=== PATIENT | female | born 1965 | race Hispanic/Latino ===

== ENCOUNTER 2017-03-19 22:21 | Inpatient (IN) | payer OTHER ==
[~2017-03-19] VITALS: Ht 149.9 cm; Wt 56.4 kg
[~2017-03-19 22:21] MED LIST: KEFLEX500 MG PO; VICODIN 5-3001 EACH PO
[2017-03-20] VITALS (18 sets, daily range): BP systolic 128–167; BP diastolic 62–100
[2017-03-20 00:40] LABS: APPEARANCE CLOUDY ((CLEAR)); BILIRUBIN NEGATIVE; BLOOD MODERATE; COLOR YELLOW ((YELLOW)); GLUCOSE (STRIP) >=500; KETONES 80; LEUKOCYTES TRACE; NITRITE NEGATIVE; PROTEIN (STRIP) 30; UROBILINOGEN 0.2 MG/DL (0.2-1.0)
[2017-03-20 00:53] LABS: BACTERIA 3+ /HPF; EPITHELIAL CELLS 1+ /HPF; HYALINE CASTS 0-5 /LPF; MUCUS 1+ /LPF; UCUL ADDED? YES; WHITE BLOOD CELLS 0-5 /HPF (0-5)
[2017-03-20 00:58] LABS: PLATELET COUNT 808 K/uL (156-360)
[2017-03-20 01:12] LABS: CHLORIDE 103 mEq/L (99-109); POTASSIUM 4.7 mEq/L (3.7-5.4); SODIUM 131 mEq/L (136-147)
[2017-03-20 01:18] LABS: CREATININE 1.2 mg/dL (0.6-1.3); GFR ESTIMATE (CALCULATED) 50 mL/min/
[2017-03-20 01:19] LABS: HEMATOCRIT 36.3 % (36.0-46.0); HEMOGLOBIN 11.1 G/DL (11.9-15.5); MCH 26.9 PG (29.0-34.0); MCHC 30.6 G/DL (30.0-36.0); MCV 87.9 FL (83-99); RBC DIS.WIDTH-CV 16.5 % (11.8-14.6); RBC DIS.WIDTH-SD 53.2 % (39-53); RED BLOOD COUNT 4.13 M/uL (3.80-5.20); UREA NITROGEN (BUN) 30 mg/dL (9-23)
[2017-03-20 01:20] LABS: CREATINE KINASE 36 IU/L (1-294); TOTAL CK 36 IU/L (1-294)
[2017-03-20 01:26] LABS: WHITE BLOOD COUNT 35.6 K/uL (4.1-10.2)
[2017-03-20 01:27] LABS: CK-MB 1.1 ng/mL (0.0-4.9); CKMB RELATIVE INDEX 3.1 (0.0-3.9)
[2017-03-20 01:29] LABS: GLUCOSE 715 mg/dL (70-99)
[2017-03-20 01:30] LABS: CARBON DIOXIDE (BICARBONATE) < 10.0 mEq/L (20-31)
[2017-03-20 01:59] LABS: MAGNESIUM 2.1 mg/dL (1.3-2.7)
[2017-03-20 02:04] LABS: PHOSPHORUS 4.3 mg/dL (2.5-4.9)
[2017-03-20 02:09] LABS: CARBOXY HGB 1.5 % (0-5); COMMENTS - BLOOD GASES A+C+; FI02 21 %; METHEMOGLOBIN 2.1 % (0-1.5); PCO2 < 19 mm Hg (35-45); PO2 89 mm Hg (80-100); SITE RR; TOTAL RESP RATE 20 resp/min; pH 7.14 (7.35-7.45)
[2017-03-20 03:29] LABS: INTER. NORMALIZED RATIO 1.2
[2017-03-20 03:31] LABS: PTT 27.3 SEC (25-37)
[2017-03-20] MEDS ORDERED: GLUCOPHAGE1000 MG PO (04:27)
[2017-03-20] MEDS ORDERED: DIABETA5 MG PO (04:28)
[2017-03-20] MEDS ORDERED: LISINOPRIL10 MG PO (04:29)
[2017-03-20 04:47] LABS: CHLORIDE 110 mEq/L (99-109); SODIUM 137 mEq/L (136-147)
[2017-03-20 04:53] LABS: CREATININE 0.9 mg/dL (0.6-1.3); GFR ESTIMATE (CALCULATED) > 59 mL/min/
[2017-03-20 04:54] LABS: UREA NITROGEN (BUN) 25 mg/dL (9-23)
[2017-03-20 04:55] LABS: CARBON DIOXIDE (BICARBONATE) < 10.0 mEq/L (20-31); GLUCOSE 433 mg/dL (70-99); PHOSPHORUS 2.5 mg/dL (2.5-4.9)
[2017-03-20 05:36] LABS: BASE EXCESS -17.7 mEq/L (-3 to +3); BICARBONATE 8.4 mEq/L (22-26); CARBOXY HGB 1.6 % (0-5); METHEMOGLOBIN 2.1 % (0-1.5); PCO2 21 mm Hg (35-45)
[2017-03-20 05:38] LABS: COMMENTS - BLOOD GASES C+; PO2 107 mm Hg (80-100); SITE RB; TOTAL RESP RATE 16 resp/min; pH 7.21 (7.35-7.45)
[2017-03-20 06:24] LABS: HEMATOCRIT 34.6 % (36.0-46.0); HEMOGLOBIN 10.4 G/DL (11.9-15.5); MCH 26.4 PG (29.0-34.0); MCHC 30.1 G/DL (30.0-36.0); MCV 87.8 FL (83-99); PLATELET COUNT 685 K/uL (156-360); RBC DIS.WIDTH-SD 51.8 % (39-53); RED BLOOD COUNT 3.94 M/uL (3.80-5.20)
[2017-03-20 06:38] LABS: CHLORIDE 110 MEQ/L (99-109); CREATININE 0.7 MG/DL (0.6-1.3); GFR ESTIMATE (CALCULATED) > 59 mL/min/; GLUCOSE 337 mg/dL (70-99); POTASSIUM 4.2 MEQ/L (3.7-5.4); SODIUM 138 MEQ/L (136-147); UREA NITROGEN (BUN) 24 mg/dL (9-23)
[2017-03-20 06:45] LABS: WHITE BLOOD COUNT 33.9 K/uL (4.1-10.2)
[2017-03-20 06:50] LABS: ALBUMIN 2.2 G/DL (3.2-4.8); ALKALINE PHOSPHATASE 240 IU/L (3-129); ALT (GPT) 18 IU/L (3-49); AST (GOT) 23 IU/L (2-34); DIRECT BILIRUBIN 0.2 mg/dL (0.0-0.3); TOTAL BILIRUBIN 0.4 MG/DL (0.0-1.0); TOTAL PROTEIN 6.1 G/DL (6.4-8.3)
[2017-03-20 06:54] LABS: CARBON DIOXIDE (BICARBONATE) < 10.0 MEQ/L (20-31)
[2017-03-20 06:55] LABS: Estimated Average Glucose 341 mg/dL (70-123); HEMOGLOBIN A1c (GLYCOHEMOGLOB) 13.5 % HGB (Below 5.7)
[2017-03-20 07:23] LABS: ABS NEUTROPHIL COUNT 31.2; ANISOCYTOSIS 2+; ATYPICAL LYMPHOCYTE 0.9 %; BAND NEUTROPHILS 0.4 % (0-8.0); BURR CELLS 1+; EOSINOPHIL ABS CT 0; LYMPHOCYTES 3.5 % (15.0-45.0); MACROCYTES 1+; MONOCYTES 3.1 % (0-9.0); MYELOCYTES 0.4 %; NUCLEATED RBC'S 0.9; PLAT.SUFFICIENCY INCREASED; POIKILOCYTOSIS 1+; SEG.NEUTROPHILS 91.7 % (46.0-76.0); SMUDGE CELLS 1.7
[2017-03-20 08:24] LABS: CHLORIDE 113 MEQ/L (99-109); CREATININE 0.6 MG/DL (0.6-1.3); GFR ESTIMATE (CALCULATED) > 59 mL/min/; GLUCOSE 255 mg/dL (70-99); PHOSPHORUS 1.9 mg/dL (2.5-4.9); POTASSIUM 3.6 MEQ/L (3.7-5.4); SODIUM 140 MEQ/L (136-147); UREA NITROGEN (BUN) 23 mg/dL (9-23)
[2017-03-20 12:36] LABS: CHLORIDE 113 MEQ/L (99-109); POTASSIUM 3.2 MEQ/L (3.7-5.4); SODIUM 138 MEQ/L (136-147)
[2017-03-20 12:42] LABS: CREATININE 0.5 MG/DL (0.6-1.3); GFR ESTIMATE (CALCULATED) > 59 mL/min/; GLUCOSE 193 mg/dL (70-99); PHOSPHORUS 1.7 mg/dL (2.5-4.9); UREA NITROGEN (BUN) 20 mg/dL (9-23)
[2017-03-20 16:26] LABS: CHLORIDE 114 MEQ/L (99-109); POTASSIUM 3.2 MEQ/L (3.7-5.4); SODIUM 138 MEQ/L (136-147)
[2017-03-20 16:31] LABS: CREATININE 0.5 MG/DL (0.6-1.3); GFR ESTIMATE (CALCULATED) > 59 mL/min/; GLUCOSE 174 mg/dL (70-99); PHOSPHORUS 1.4 mg/dL (2.5-4.9); UREA NITROGEN (BUN) 18 mg/dL (9-23)
[2017-03-20 20:38] LABS: CHLORIDE 114 MEQ/L (99-109); POTASSIUM 3.5 MEQ/L (3.7-5.4); SODIUM 139 MEQ/L (136-147)
[2017-03-20 20:43] LABS: CREATININE 0.4 MG/DL (0.6-1.3); GFR ESTIMATE (CALCULATED) > 59 mL/min/; GLUCOSE 141 mg/dL (70-99); PHOSPHORUS 1.3 mg/dL (2.5-4.9); UREA NITROGEN (BUN) 16 mg/dL (9-23)
[2017-03-21] VITALS (11 sets, daily range): BP systolic 123–152; BP diastolic 63–77
[2017-03-21 05:27] LABS: BASOPHIL (%) 0.3 % (0-1); BASOPHIL COUNT 0.1 K/uL (0-0.1); EOSINOPHIL (%) 0.8 % (0-5); EOSINOPHIL COUNT 0.2 K/uL (0-0.3); HEMATOCRIT 28.7 % (36.0-46.0); HEMOGLOBIN 9.4 G/DL (11.9-15.5); IMMATURE GRANULOCYTE (%) 4.1 % (0.0-0.7); LYMPHOCYTE (%) 4.1 % (15-42); LYMPHOCYTE COUNT 0.9 K/uL (1.0-2.8); MCH 26.9 PG (29.0-34.0); MCHC 32.8 G/DL (30.0-36.0); MONOCYTE (%) 3.5 % (3-12); MONOCYTE COUNT 0.8 K/uL (0-0.8); NEUTROPHIL (%) 87.2 % (45-76); NEUTROPHIL COUNT 20.2 K/uL (1.8-6.4); PLATELET COUNT 646 K/uL (156-360); RBC DIS.WIDTH-CV 15.9 % (11.8-14.6); RBC DIS.WIDTH-SD 46.8 % (39-53); WHITE BLOOD COUNT 23.1 K/uL (4.1-10.2)
[2017-03-21 05:43] LABS: CHLORIDE 112 MEQ/L (99-109); CREATININE 0.5 MG/DL (0.6-1.3); GFR ESTIMATE (CALCULATED) > 59 mL/min/; POTASSIUM 3.3 MEQ/L (3.7-5.4); SODIUM 137 MEQ/L (136-147); UREA NITROGEN (BUN) 14 mg/dL (9-23)
[2017-03-21 05:46] LABS: GLUCOSE 231 mg/dL (70-99); PHOSPHORUS 1.8 mg/dL (2.5-4.9)
[2017-03-22] VITALS (7 sets, daily range): BP systolic 109–137; BP diastolic 57–107
[2017-03-22 05:42] LABS: HEMATOCRIT 30.9 % (36.0-46.0); HEMOGLOBIN 10.2 G/DL (11.9-15.5); MCH 26.8 PG (29.0-34.0); MCV 81.3 FL (83-99); PLATELET COUNT 682 K/uL (156-360); RBC DIS.WIDTH-CV 15.9 % (11.8-14.6); RBC DIS.WIDTH-SD 46.5 % (39-53); WHITE BLOOD COUNT 22.3 K/uL (4.1-10.2)
[2017-03-22 06:05] LABS: CHLORIDE 108 MEQ/L (99-109); CREATININE 0.3 MG/DL (0.6-1.3); GFR ESTIMATE (CALCULATED) > 59 mL/min/; GLUCOSE 56 mg/dL (70-99); MAGNESIUM 1.7 mg/dl (1.3-2.7); PHOSPHORUS 2.9 mg/dL (2.5-4.9); POTASSIUM 3.4 MEQ/L (3.7-5.4); SODIUM 137 MEQ/L (136-147); UREA NITROGEN (BUN) 8 mg/dL (9-23)
[2017-03-22 07:01] LABS: ABS NEUTROPHIL COUNT 19.5; ANISOCYTOSIS 2+; BAND NEUTROPHILS 18.5 % (0-8.0); EOSINOPHIL ABS CT 0; LYMPHOCYTES 10.5 % (15.0-45.0); MACROCYTES 1+; NUCLEATED RBC'S 0.5; PLAT.SUFFICIENCY INCREASED
[2017-03-23 05:48] LABS: BASOPHIL (%) 0.3 % (0-1); BASOPHIL COUNT 0.1 K/uL (0-0.1); EOSINOPHIL (%) 0.1 % (0-5); HEMATOCRIT 26.6 % (36.0-46.0); HEMOGLOBIN 8.9 G/DL (11.9-15.5); IMMATURE GRANULOCYTE (%) 4.9 % (0.0-0.7); LYMPHOCYTE (%) 6.6 % (15-42); LYMPHOCYTE COUNT 1.6 K/uL (1.0-2.8); MCH 27.1 PG (29.0-34.0); MCHC 33.5 G/DL (30.0-36.0); MCV 80.9 FL (83-99); MONOCYTE (%) 5.6 % (3-12); MONOCYTE COUNT 1.3 K/uL (0-0.8); NEUTROPHIL (%) 82.5 % (45-76); NEUTROPHIL COUNT 19.4 K/uL (1.8-6.4); PLATELET COUNT 627 K/uL (156-360); RBC DIS.WIDTH-CV 15.4 % (11.8-14.6); RBC DIS.WIDTH-SD 44.6 % (39-53); RED BLOOD COUNT 3.29 M/uL (3.80-5.20); WHITE BLOOD COUNT 23.5 K/uL (4.1-10.2)
[2017-03-23 06:13] LABS: ALBUMIN 1.8 G/DL (3.2-4.8); AST (GOT) 29 IU/L (2-34); CHLORIDE 103 MEQ/L (99-109); CREATININE 0.3 MG/DL (0.6-1.3); GFR ESTIMATE (CALCULATED) > 59 mL/min/; GLUCOSE 65 mg/dL (70-99); PHOSPHORUS 3.2 mg/dL (2.5-4.9); POTASSIUM 3.5 MEQ/L (3.7-5.4); SODIUM 134 MEQ/L (136-147); UREA NITROGEN (BUN) 4 mg/dL (9-23)
[2017-03-23 06:14] LABS: ALKALINE PHOSPHATASE 427 IU/L (3-129); ALT (GPT) 40 IU/L (3-49); TOTAL BILIRUBIN 0.6 MG/DL (0.0-1.0); TOTAL PROTEIN 4.9 G/DL (6.4-8.3)
[2017-03-23 07:20] VITALS: BP 128/82
[2017-03-23] MEDS ORDERED: JANUVIA100 MG PO (13:09)
[2017-03-23] MEDS ORDERED: ZOCOR10 MG PO (13:12)
[2017-03-23] MEDS ORDERED: LEVEMIR100 UNIT/2 SC (13:16)
[2017-03-23 14:58] VITALS: BP 126/60
[2017-03-24 01:21] VITALS: BP 142/69
[2017-03-24 06:22] LABS: HEMATOCRIT 28.4 % (36.0-46.0); HEMOGLOBIN 9.4 G/DL (11.9-15.5); MCHC 33.1 G/DL (30.0-36.0); MCV 81.6 FL (83-99); RBC DIS.WIDTH-CV 15.3 % (11.8-14.6); RBC DIS.WIDTH-SD 43.8 % (39-53); RED BLOOD COUNT 3.48 M/uL (3.80-5.20); WHITE BLOOD COUNT 21.1 K/uL (4.1-10.2)
[2017-03-24 07:28] LABS: ABS NEUTROPHIL COUNT 15.6; EOSINOPHIL ABS CT 0.1; EOSINOPHILS 0.5 % (0-5.0); HEMATOLOGY COMMENT 1 SMEAR COMPATIBLE; MYELOCYTES 3.5 %; PLATELET CLUMPS PRESENT - PLATELET COUNT APPEARS INCREASED
[2017-03-24 07:51] VITALS: BP 106/55
[2017-03-24 12:22] VITALS: BP 109/60
[2017-03-24 20:05] VITALS: BP 132/60
[2017-03-25] VITALS (13 sets, daily range): BP systolic 106–140; BP diastolic 56–72
[2017-03-25 06:43] LABS: BASOPHIL (%) 0.2 % (0-1); EOSINOPHIL (%) 0.5 % (0-5); EOSINOPHIL COUNT 0.1 K/uL (0-0.3); HEMATOCRIT 23.1 % (36.0-46.0); HEMOGLOBIN 7.5 G/DL (11.9-15.5); IMMATURE GRANULOCYTE (%) 4.5 % (0.0-0.7); LYMPHOCYTE (%) 10.3 % (15-42); LYMPHOCYTE COUNT 1.1 K/uL (1.0-2.8); MCH 26.4 PG (29.0-34.0); MCHC 32.5 G/DL (30.0-36.0); MCV 81.3 FL (83-99); MONOCYTE (%) 9.8 % (3-12); MONOCYTE COUNT 1.1 K/uL (0-0.8); NEUTROPHIL (%) 74.7 % (45-76); NEUTROPHIL COUNT 8.2 K/uL (1.8-6.4); PLATELET COUNT 517 K/uL (156-360); RBC DIS.WIDTH-SD 42.6 % (39-53); RED BLOOD COUNT 2.84 M/uL (3.80-5.20)
[2017-03-25 07:10] LABS: CHLORIDE 100 MEQ/L (99-109); CREATININE 0.3 MG/DL (0.6-1.3); GFR ESTIMATE (CALCULATED) > 59 mL/min/; SODIUM 134 MEQ/L (136-147); UREA NITROGEN (BUN) 5 mg/dL (9-23)
[2017-03-25 07:14] LABS: GLUCOSE 193 mg/dL (70-99)
[2017-03-26 06:25] LABS: BASOPHIL (%) 0.6 % (0-1); BASOPHIL COUNT 0.1 K/uL (0-0.1); EOSINOPHIL (%) 0.5 % (0-5); EOSINOPHIL COUNT 0.1 K/uL (0-0.3); HEMATOCRIT 32.4 % (36.0-46.0); LYMPHOCYTE (%) 10.2 % (15-42); LYMPHOCYTE COUNT 1.6 K/uL (1.0-2.8); MCH 27.7 PG (29.0-34.0); MCV 83.9 FL (83-99); MONOCYTE (%) 9.4 % (3-12); MONOCYTE COUNT 1.4 K/uL (0-0.8); NEUTROPHIL (%) 76.3 % (45-76); NEUTROPHIL COUNT 11.6 K/uL (1.8-6.4); PLATELET COUNT 525 K/uL (156-360); RBC DIS.WIDTH-SD 43.8 % (39-53); WHITE BLOOD COUNT 15.2 K/uL (4.1-10.2)
[2017-03-26 06:35] LABS: CHLORIDE 99 MEQ/L (99-109); CREATININE 0.3 MG/DL (0.6-1.3); GFR ESTIMATE (CALCULATED) > 59 mL/min/; GLUCOSE 42 mg/dL (70-99); SODIUM 134 MEQ/L (136-147); UREA NITROGEN (BUN) 5 mg/dL (9-23)
[2017-03-26 06:54] LABS: HEMOGLOBIN 10.7 G/DL (11.9-15.5); RED BLOOD COUNT 3.86 M/uL (3.80-5.20)
[2017-03-26 07:34] VITALS: BP 114/58
[2017-03-26 12:19] VITALS: BP 128/58
[2017-03-26 16:42] VITALS: BP 122/58
[2017-03-27 00:14] VITALS: BP 117/61
[2017-03-27 06:32] LABS: BASOPHIL (%) 0.5 % (0-1); BASOPHIL COUNT 0.1 K/uL (0-0.1); EOSINOPHIL (%) 0.7 % (0-5); EOSINOPHIL COUNT 0.1 K/uL (0-0.3); HEMATOCRIT 34.9 % (36.0-46.0); HEMOGLOBIN 11.3 G/DL (11.9-15.5); IMMATURE GRANULOCYTE (%) 2.1 % (0.0-0.7); LYMPHOCYTE (%) 10.3 % (15-42); LYMPHOCYTE COUNT 1.3 K/uL (1.0-2.8); MCHC 32.4 G/DL (30.0-36.0); MCV 83.5 FL (83-99); MONOCYTE (%) 8.1 % (3-12); MONOCYTE COUNT 1.1 K/uL (0-0.8); NEUTROPHIL (%) 78.3 % (45-76); NEUTROPHIL COUNT 10.1 K/uL (1.8-6.4); PLATELET COUNT 545 K/uL (156-360); RBC DIS.WIDTH-CV 14.6 % (11.8-14.6); RBC DIS.WIDTH-SD 43.4 % (39-53); RED BLOOD COUNT 4.18 M/uL (3.80-5.20); WHITE BLOOD COUNT 12.9 K/uL (4.1-10.2)
[2017-03-27 07:34] VITALS: BP 142/69
[2017-03-27 17:54] VITALS: BP 140/66
[2017-03-28 00:38] VITALS: BP 119/64
[2017-03-28 06:38] LABS: BASOPHIL (%) 0.4 % (0-1); EOSINOPHIL (%) 1.1 % (0-5); EOSINOPHIL COUNT 0.1 K/uL (0-0.3); HEMATOCRIT 34.4 % (36.0-46.0); HEMOGLOBIN 11.1 G/DL (11.9-15.5); LYMPHOCYTE (%) 12.9 % (15-42); LYMPHOCYTE COUNT 1.4 K/uL (1.0-2.8); MCH 27.3 PG (29.0-34.0); MCHC 32.3 G/DL (30.0-36.0); MCV 84.7 FL (83-99); MONOCYTE (%) 7.1 % (3-12); MONOCYTE COUNT 0.8 K/uL (0-0.8); NEUTROPHIL (%) 76.5 % (45-76); NEUTROPHIL COUNT 8.4 K/uL (1.8-6.4); PLATELET COUNT 490 K/uL (156-360); RBC DIS.WIDTH-CV 14.4 % (11.8-14.6); RBC DIS.WIDTH-SD 43.7 % (39-53); RED BLOOD COUNT 4.06 M/uL (3.80-5.20)
[2017-03-28 07:16] LABS: CHLORIDE 96 MEQ/L (99-109); CREATININE 0.4 MG/DL (0.6-1.3); GFR ESTIMATE (CALCULATED) > 59 mL/min/; POTASSIUM 4.9 MEQ/L (3.7-5.4); SODIUM 132 MEQ/L (136-147); UREA NITROGEN (BUN) 7 mg/dL (9-23)
[2017-03-28 07:19] LABS: GLUCOSE 181 mg/dL (70-99)
[2017-03-28 08:11] VITALS: BP 111/51
[2017-03-28 15:35] VITALS: BP 121/58
[2017-03-29 00:18] VITALS: BP 109/58
[2017-03-29 08:20] VITALS: BP 107/62
[2017-03-29 09:15] VITALS: BP 112/60
[2017-03-29 16:29] VITALS: BP 126/64
[2017-03-30 00:24] VITALS: BP 119/76
[2017-03-30 06:50] VITALS: BP 116/61
[2017-03-30 07:03] LABS: HEMOGLOBIN 10.2 G/DL (11.9-15.5); MCHC 32.9 G/DL (30.0-36.0); MCV 85.2 FL (83-99); PLATELET COUNT 467 K/uL (156-360); RBC DIS.WIDTH-CV 14.1 % (11.8-14.6); RBC DIS.WIDTH-SD 43.3 % (39-53); RED BLOOD COUNT 3.64 M/uL (3.80-5.20)
[2017-03-30 07:09] LABS: CHLORIDE 97 MEQ/L (99-109); CREATININE 0.3 MG/DL (0.6-1.3); GFR ESTIMATE (CALCULATED) > 59 mL/min/; POTASSIUM 4.3 MEQ/L (3.7-5.4); SODIUM 135 MEQ/L (136-147); UREA NITROGEN (BUN) 7 mg/dL (9-23)
[2017-03-30 07:13] LABS: GLUCOSE 67 mg/dL (70-99)
[2017-03-30] MEDS ORDERED: HYDROCODON-ACE1 EAC7 PO (08:57)
[2017-03-30] MEDS ORDERED: ROCEPHIN 2 GM VI2 GM IV (09:02)
[2017-03-30 10:15] VITALS: BP 132/71
[2017-03-30 10:28] VITALS: BP 116/69
[2017-03-30 11:03] LABS: BASOPHIL (%) 0.4 % (0-1); EOSINOPHIL (%) 1.7 % (0-5); EOSINOPHIL COUNT 0.2 K/uL (0-0.3); HEMATOCRIT 34.1 % (36.0-46.0); HEMOGLOBIN 11.2 G/DL (11.9-15.5); IMMATURE GRANULOCYTE (%) 0.9 % (0.0-0.7); LYMPHOCYTE COUNT 1.3 K/uL (1.0-2.8); MCH 27.9 PG (29.0-34.0); MCHC 32.8 G/DL (30.0-36.0); MONOCYTE (%) 6.3 % (3-12); MONOCYTE COUNT 0.6 K/uL (0-0.8); NEUTROPHIL (%) 77.7 % (45-76); NEUTROPHIL COUNT 7.5 K/uL (1.8-6.4); PLATELET COUNT 428 K/uL (156-360); RBC DIS.WIDTH-CV 14.1 % (11.8-14.6); RBC DIS.WIDTH-SD 42.9 % (39-53); RED BLOOD COUNT 4.01 M/uL (3.80-5.20); WHITE BLOOD COUNT 9.7 K/uL (4.1-10.2)
[2017-03-30 11:25] LABS: TROP-I INTERPRETATION NEGATIVE; TROPONIN-I < 0.01 ng/mL (0.0-0.30)
[2017-03-30 15:20] VITALS: BP 134/68
== END 2017-03-30 18:39 | disposition home health service (06) | DRG 871 ==
LOC: EME 22:21 → 5EAST 03-20 02:30 → EDOF 03-20 02:30 → 4WEST 03-20 02:30 → ENRESERV 03-20 02:34 → 4WEST 03-20 03:57 → ENRESERV 03-22 17:27 → 5EAST 03-22 19:52
PROVIDERS: Emergency Medicine; Family Medicine; Internal Medicine; Internal Medicine Critical Care Medicine; Physician Assistant; Surgery
DX: A41.01 Sepsis due to Methicillin susceptible Staphylococcus aureus (principal); M60.08 Infective myositis, other site; N39.0 Urinary tract infection, site not specified; E11.10 Type 2 diabetes mellitus with ketoacidosis without coma; E87.1 Hypo-osmolality and hyponatremia; E87.3 Alkalosis; T85.618A Breakdown (mechanical) of other specified internal prosthetic devices, implants and grafts, initial encounter; Y84.8 Other medical procedures as the cause of abnormal reaction of the patient, or of later complication, without mention of misadventure at the time of the procedure; R31.9 Hematuria, unspecified; R79.1 Abnormal coagulation profile; I10 Essential (primary) hypertension; D47.3 Essential (hemorrhagic) thrombocythemia; K21.9 Gastro-esophageal reflux disease without esophagitis; D64.9 Anemia, unspecified; E78.5 Hyperlipidemia, unspecified; E78.1 Pure hyperglyceridemia; Z91.14 Patient's other noncompliance with medication regimen; Z91.19 Patient's noncompliance with other medical treatment and regimen
CPT/HCPCS: 10030; 36600; 70450; 71275; 72131; 74177; 75989; 76937; 80048; 80048 91; 80053; 80076; 80202; 81003; 82010; 82140; 82550; 82553; 82803; 82948; 83036; 83605; 83735; 84100; 84484; 85025; 85027; 85379; 85610; 85730; 86850; 86900; 86901; 86920; 87040; 87070; 87075; 87077; 87086; 87147; 87186; 87205; 87641; 87801; 93005; 93306; 93971; 94799; 99281; 99285; C1729; C1769; J0690; J0696; J1170; J1200; J1650; J1815; J1940; J2270; J2543; J3010; J3370; J3475; J7030; J7040; J7042; J7050; P9016; S0028

== ENCOUNTER 2017-04-14 13:54 | Inpatient (IN) | payer OTHER ==
[~2017-04-14] VITALS: Ht 149.9 cm; Wt 54.5 kg
[~2017-04-14 13:54] MED LIST changes: +DIABETA5 MG PO; +GLUCOPHAGE1000 MG PO; +HYDROCODON-ACE1 EAC7 PO; +JANUVIA100 MG PO; +LEVEMIR100 UNIT/2 SC; +LISINOPRIL10 MG PO; +ROCEPHIN 2 GM VI2 GM IV; +ZOCOR10 MG PO
[2017-04-14 14:46] LABS: BASOPHIL (%) 0.8 % (0-1); BASOPHIL COUNT 0.1 K/uL (0-0.1); EOSINOPHIL (%) 1.4 % (0-5); EOSINOPHIL COUNT 0.2 K/uL (0-0.3); HEMATOCRIT 38.6 % (36.0-46.0); HEMOGLOBIN 12.3 G/DL (11.9-15.5); IMMATURE GRANULOCYTE (%) 1.1 % (0.0-0.7); LYMPHOCYTE (%) 14.4 % (15-42); LYMPHOCYTE COUNT 1.7 K/uL (1.0-2.8); MCH 26.7 PG (29.0-34.0); MCHC 31.9 G/DL (30.0-36.0); MCV 83.7 FL (83-99); MONOCYTE (%) 4.8 % (3-12); MONOCYTE COUNT 0.6 K/uL (0-0.8); NEUTROPHIL (%) 77.5 % (45-76); NEUTROPHIL COUNT 9.3 K/uL (1.8-6.4); PLATELET COUNT 610 K/uL (156-360); RBC DIS.WIDTH-CV 14.6 % (11.8-14.6); RBC DIS.WIDTH-SD 44.1 % (39-53); RED BLOOD COUNT 4.61 M/uL (3.80-5.20)
[2017-04-14 14:53] LABS: CHLORIDE 97 mEq/L (99-109); POTASSIUM 4.2 mEq/L (3.7-5.4); SODIUM 136 mEq/L (136-147)
[2017-04-14 14:55] LABS: GLUCOSE 152 mg/dL (70-99)
[2017-04-14 14:58] LABS: CREATININE 0.6 mg/dL (0.6-1.3); GFR ESTIMATE (CALCULATED) > 59 mL/min/
[2017-04-14 14:59] LABS: UREA NITROGEN (BUN) 8 mg/dL (9-23)
[2017-04-14 16:37] LABS: ALBUMIN 3.1 g/dL (3.2-4.8)
[2017-04-14 16:40] LABS: TOTAL PROTEIN 7.3 g/dL (6.4-8.3)
[2017-04-14 16:41] LABS: TOTAL BILIRUBIN 0.3 mg/dL (0.0-1.0)
[2017-04-14 16:42] LABS: ALKALINE PHOSPHATASE 96 IU/L (3-129)
[2017-04-14 16:43] LABS: INTER. NORMALIZED RATIO 1.1
[2017-04-14 16:45] LABS: AST (GOT) 14 IU/L (2-34); DIRECT BILIRUBIN 0.1 mg/dL (0.0-0.3)
[2017-04-14 16:46] LABS: ALT (GPT) 6 IU/L (3-49); LIPASE 10 U/L (1.0-51.0); PTT 30.6 SEC (25-37)
[2017-04-14 17:06] LABS: TROP-I INTERPRETATION NEGATIVE; TROPONIN-I < 0.01 ng/mL (0.0-0.30)
[2017-04-14] MEDS ORDERED: PEPCID AC20 MG PO (19:13)
[2017-04-14] MEDS ORDERED: PEPTO BISMOL240 ML PO (19:14)
[2017-04-15 00:50] VITALS: BP 128/60
[2017-04-15 04:00] VITALS: BP 135/62
[2017-04-15 06:54] LABS: ALBUMIN 2.3 G/DL (3.2-4.8); ALKALINE PHOSPHATASE 107 IU/L (3-129); ALT (GPT) 7 IU/L (3-49); AST (GOT) 14 IU/L (2-34); CHLORIDE 107 MEQ/L (99-109); CREATININE 0.3 MG/DL (0.6-1.3); GFR ESTIMATE (CALCULATED) > 59 mL/min/; POTASSIUM 3.8 MEQ/L (3.7-5.4); SODIUM 137 MEQ/L (136-147); TOTAL BILIRUBIN 0.3 MG/DL (0.0-1.0); UREA NITROGEN (BUN) 6 mg/dL (9-23)
[2017-04-15 06:56] LABS: MCH 26.6 PG (29.0-34.0); PLATELET COUNT 438 K/uL (156-360); RBC DIS.WIDTH-CV 14.6 % (11.8-14.6); RBC DIS.WIDTH-SD 45.1 % (39-53); WHITE BLOOD COUNT 9.7 K/uL (4.1-10.2)
[2017-04-15 07:02] LABS: HEMOGLOBIN 9.3 G/DL (11.9-15.5); RED BLOOD COUNT 3.49 M/uL (3.80-5.20)
[2017-04-15 07:10] LABS: GLUCOSE 92 mg/dL (70-99)
[2017-04-15 07:15] VITALS: BP 118/67
[2017-04-15 09:42] LABS: APPEARANCE CLEAR ((CLEAR)); BILIRUBIN NEGATIVE; BLOOD SMALL; COLOR YELLOW ((YELLOW)); GLUCOSE (STRIP) NEGATIVE; KETONES NEGATIVE; LEUKOCYTES TRACE; NITRITE NEGATIVE; PROTEIN (STRIP) NEGATIVE; SPECIFIC GRAVITY 1.017 (1.000-1.030); UROBILINOGEN 0.2 MG/DL (0.2-1.0)
[2017-04-15 09:44] LABS: BACTERIA NONE SEEN /HPF; EPITHELIAL CELLS RARE /HPF; MUCUS TRACE /LPF; RED BLOOD CELLS 0-5 /HPF (0-5); UCUL ADDED? NO; WHITE BLOOD CELLS 0-5 /HPF (0-5)
[2017-04-15 11:42] VITALS: BP 121/63
[2017-04-15 16:51] VITALS: BP 121/63
[2017-04-15 19:30] VITALS: BP 110/72
[2017-04-16 00:04] VITALS: BP 100/59
[2017-04-16 00:10] VITALS: BP 147/69
[2017-04-16 06:28] LABS: BASOPHIL (%) 0.8 % (0-1); BASOPHIL COUNT 0.1 K/uL (0-0.1); EOSINOPHIL (%) 3.9 % (0-5); EOSINOPHIL COUNT 0.3 K/uL (0-0.3); HEMATOCRIT 28.4 % (36.0-46.0); HEMOGLOBIN 8.9 G/DL (11.9-15.5); IMMATURE GRANULOCYTE (%) 1.2 % (0.0-0.7); LYMPHOCYTE (%) 23.4 % (15-42); LYMPHOCYTE COUNT 1.7 K/uL (1.0-2.8); MCH 26.5 PG (29.0-34.0); MCHC 31.3 G/DL (30.0-36.0); MCV 84.5 FL (83-99); MONOCYTE COUNT 0.7 K/uL (0-0.8); NEUTROPHIL (%) 61.7 % (45-76); NEUTROPHIL COUNT 4.5 K/uL (1.8-6.4); PLATELET COUNT 462 K/uL (156-360); RBC DIS.WIDTH-CV 14.6 % (11.8-14.6); RBC DIS.WIDTH-SD 44.9 % (39-53); RED BLOOD COUNT 3.36 M/uL (3.80-5.20); WHITE BLOOD COUNT 7.4 K/uL (4.1-10.2)
[2017-04-16 06:50] LABS: CHLORIDE 106 MEQ/L (99-109); CREATININE 0.3 MG/DL (0.6-1.3); GFR ESTIMATE (CALCULATED) > 59 mL/min/; GLUCOSE 97 mg/dL (70-99); POTASSIUM 3.6 MEQ/L (3.7-5.4); SODIUM 136 MEQ/L (136-147); UREA NITROGEN (BUN) 3 mg/dL (9-23)
[2017-04-16 07:18] LABS: VANCOMYCIN, TROUGH 7.9 MCG/ML (10-20)
[2017-04-16 08:41] VITALS: BP 151/75
[2017-04-16 11:34] VITALS: BP 147/80
[2017-04-16 16:13] VITALS: BP 127/61
[2017-04-17] VITALS: BP 124/59
[2017-04-17 06:19] LABS: BASOPHIL (%) 0.8 % (0-1); BASOPHIL COUNT 0.1 K/uL (0-0.1); EOSINOPHIL (%) 4.2 % (0-5); EOSINOPHIL COUNT 0.3 K/uL (0-0.3); HEMATOCRIT 27.2 % (36.0-46.0); HEMOGLOBIN 8.4 G/DL (11.9-15.5); IMMATURE GRANULOCYTE (%) 2.1 % (0.0-0.7); LYMPHOCYTE (%) 28.4 % (15-42); LYMPHOCYTE COUNT 1.8 K/uL (1.0-2.8); MCHC 30.9 G/DL (30.0-36.0); MCV 84.2 FL (83-99); MONOCYTE (%) 10.1 % (3-12); MONOCYTE COUNT 0.6 K/uL (0-0.8); NEUTROPHIL (%) 54.4 % (45-76); NEUTROPHIL COUNT 3.4 K/uL (1.8-6.4); PLATELET COUNT 485 K/uL (156-360); RBC DIS.WIDTH-CV 14.6 % (11.8-14.6); RBC DIS.WIDTH-SD 45.1 % (39-53); RED BLOOD COUNT 3.23 M/uL (3.80-5.20); WHITE BLOOD COUNT 6.2 K/uL (4.1-10.2)
[2017-04-17 07:00] LABS: CHLORIDE 108 MEQ/L (99-109); CREATININE 0.3 MG/DL (0.6-1.3); GFR ESTIMATE (CALCULATED) > 59 mL/min/; GLUCOSE 70 mg/dL (70-99); SODIUM 140 MEQ/L (136-147); UREA NITROGEN (BUN) 3 mg/dL (9-23)
[2017-04-17 07:38] VITALS: BP 117/57
[2017-04-17] MEDS ORDERED: HYDROCODON-ACE1 EAC7 PO (14:51)
[2017-04-17] MEDS ORDERED: KEFLEX500 MG PO (14:56)
[2017-04-17] MEDS ORDERED: CLARITIN,ALAVAR10 MG PO (15:59)
[2017-04-17] MEDS ORDERED: FLONASE16 G1 BOTH NARES (15:59)
== END 2017-04-17 16:15 | disposition home or self-care (01) | DRG 602 ==
LOC: EME 13:54 → 5EAST 19:52 → EDOF 19:52 → ENRESERV 19:55 → EDOF 23:09 → ENRESERV 23:10 → 5EAST 04-15 01:24
PROVIDERS: Emergency Medicine; Family Medicine; Physician Assistant
PROC: 0J9900Z Drainage of Buttock Subcutaneous Tissue and Fascia with Drainage Device, Open Approach (ICD-10-PCS; principal; 2017-04-14)
DX: L02.415 Cutaneous abscess of right lower limb (principal); L02.31 Cutaneous abscess of buttock; E11.10 Type 2 diabetes mellitus with ketoacidosis without coma; I10 Essential (primary) hypertension; E78.5 Hyperlipidemia, unspecified; E78.1 Pure hyperglyceridemia; D64.9 Anemia, unspecified; M25.551 Pain in right hip; R60.0 Localized edema; L97.419 Non-pressure chronic ulcer of right heel and midfoot with unspecified severity; Z90.49 Acquired absence of other specified parts of digestive tract; A49.01 Methicillin susceptible Staphylococcus aureus infection, unspecified site; Z79.4 Long term (current) use of insulin
CPT/HCPCS: 36415; 71046; 74177; 80048; 80053; 80076; 80202; 81003; 82272; 82565; 82948; 83605; 83690; 84484; 84520; 85025; 85025 91; 85027; 85610; 85730; 87040; 87070; 87075; 87077; 87147; 87177; 87186; 87205; 87493; 99281; 99285; C1755; J0330; J1170; J1815; J2250; J2405; J2543; J2765; J3010; J3370; J7030; J7050; S0020

== ENCOUNTER 2017-08-12 14:53 | Emergency (ER) | payer OTHER ==
[~2017-08-12] VITALS: Ht 149.9 cm; Wt 54.5 kg
[~2017-08-12 14:53] MED LIST changes: +CLARITIN,ALAVAR10 MG PO; +FLONASE16 G1 BOTH NARES; +PEPCID AC20 MG PO; +PEPTO BISMOL240 ML PO
[2017-08-12 15:48] LABS: HEMATOCRIT 33.3 % (36.0-46.0); HEMOGLOBIN 11.6 G/DL (11.9-15.5); MCH 27.4 PG (29.0-34.0); MCHC 34.8 G/DL (30.0-36.0); MCV 78.7 FL (83-99); PLATELET COUNT 308 K/uL (156-360); RED BLOOD COUNT 4.23 M/uL (3.80-5.20); WHITE BLOOD COUNT 6.9 K/uL (4.1-10.2)
[2017-08-12 15:57] LABS: ALBUMIN 4.1 g/dL (3.2-4.8); CHLORIDE 98 mEq/L (99-109); POTASSIUM 3.8 mEq/L (3.7-5.4); SODIUM 134 mEq/L (136-147)
[2017-08-12 15:59] LABS: GLUCOSE 193 mg/dL (70-99)
[2017-08-12 16:01] LABS: TOTAL BILIRUBIN 0.7 mg/dL (0.0-1.0)
[2017-08-12 16:03] LABS: ALKALINE PHOSPHATASE 75 IU/L (3-129); CREATININE 0.8 mg/dL (0.6-1.3); GFR ESTIMATE (CALCULATED) > 59 mL/min/
[2017-08-12 16:04] LABS: UREA NITROGEN (BUN) 22 mg/dL (9-23)
[2017-08-12 16:05] LABS: AST (GOT) 10 IU/L (2-34)
[2017-08-12 16:06] LABS: ALT (GPT) 9 IU/L (3-49)
[2017-08-12 16:12] LABS: TROP-I INTERPRETATION NEGATIVE; TROPONIN-I < 0.01 ng/mL (0.0-0.30)
[2017-08-12 19:19] VITALS: BP 157/90
== END 2017-08-12 19:20 | disposition home or self-care (01) ==
LOC: EME 14:53
PROVIDERS: Emergency Medicine Emergency Medical Services
DX: R42 Dizziness and giddiness (principal); R53.1 Weakness; E11.65 Type 2 diabetes mellitus with hyperglycemia; Z79.4 Long term (current) use of insulin; Z79.84 Long term (current) use of oral hypoglycemic drugs; E86.0 Dehydration; I51.7 Cardiomegaly; R94.31 Abnormal electrocardiogram [ECG] [EKG]; I10 Essential (primary) hypertension
CPT/HCPCS: 71045; 80053; 82948; 84484; 85027; 93005; 99281; 99285; J7040